=== PATIENT | male | born 1970 | race Caucasian/White ===

== ENCOUNTER 2019-07-02 09:32 | Observation (INO) | payer SELFPAY ==
[~2019-07-02] VITALS: Ht 175.3 cm; Wt 85.4 kg
--- NOTE | 2019-07-02 09:55 | ED Chest Pain ---
General Chief Complaint: Chest Pain Stated Complaint: MEMORY LOSS;CHEST PAIN Source: patient History of Present Illness Date Seen by Provider: Jul 02, 2019 Time Seen by Provider: 09:52 Initial Comments This 48-year-old male presents with chest pain began this morning at 8 o'clock. The chest pain was described as pressure type in nature. It was located over the anterior chest. There was associated diaphoresis. There was no nausea or vomiting. Patient denies similar episode in the past. Past medical history includes untreated hypertension. There is a significant family history for diabetes, hypertension, heart disease. Patient is a smoker. The patient drinks alcohol. Patient denies recreational drugs. The patient according to his had demonstrated slurred speech at the time of his chest pain which was self-limited in nature. The patient denied other lateralizing or localizing neurologic complaints. Allergies and Home Medications Allergies Coded Allergies: No Known Drug Allergies (Unverified , 07/02/19) Home Medications No Active Prescriptions or Reported Meds Patient Home Medication List Home Medication List Reviewed: Yes Review of Systems Review of Systems Constitutional: No chills, No fever EENTM: No Blurred Vision Respiratory: Denies Cough, Denies SOA at Rest Cardiovascular: See HPI, Chest Pain, Other (diaphoresis with the) Gastrointestinal: Denies Abdominal Pain, Denies Nausea Genitourinary: Denies Burning, Denies Frequency Musculoskeletal: No back pain Skin: No change in color, No rash Psychiatric/Neurological: No Symptoms Reported Endocrine: No Symptoms Reported Hematologic/Lymphatic: No Symptoms Reported Past Yohkyis-Rzdzak-Rqasde Hx Past Med/Social Hx: Reviewed Nursing Past Med/Soc Hx Physical Exam Vital Signs Vital Signs - First Documented 07/02/19 09:32 Temp 36.0 Pulse 96 Resp 18 B/P (MAP) 162/117 (132) Pulse Ox 98 Capillary Refill : Height, Weight, BMI Height: '" Weight: lbs. oz. kg; BMI Method: General Appearance: No Apparent Distress HEENT: Normal ENT Inspection Neck: Full Range of Motion, Normal Inspection, Supple Respiratory: Lungs Clear Cardiovascular: Regular Rate, Rhythm, No Murmur Gastrointestinal: Normal Bowel Sounds Extremity: Normal Capillary Refill, Normal Inspection Neurologic/Psychiatric: Alert, Oriented x3, No Motor/Sensory Deficits, Normal Mood/Affect Skin: Normal Color, Warm/Dry Progress/Results/Core Measures Results/Orders Lab Results Laboratory Tests Test 07/02/19 09:39 Range/Units White Blood Count 6.9 4.3-11.0 10^3/uL Red Blood Count 4.91 4.35-5.85 10^6/uL Hemoglobin 17.3 13.3-17.7 G/DL Hematocrit 50 40-54 % Mean Corpuscular Volume 101 H 80-99 FL Mean Corpuscular Hemoglobin 35 H 25-34 PG Mean Corpuscular Hemoglobin Concent 35 32-36 G/DL Red Cell Distribution Width 13.8 10.0-14.5 % Platelet Count 219 130-400 10^3/uL Mean Platelet Volume 11.0 H 7.4-10.4 FL Neutrophils (%) (Auto) 50 42-75 % Lymphocytes (%) (Auto) 35 12-44 % Monocytes (%) (Auto) 13 H 0-12 % Eosinophils (%) (Auto) 1 0-10 % Basophils (%) (Auto) 1 0-10 % Neutrophils # (Auto) 3.5 1.8-7.8 X 10^3 Lymphocytes # (Auto) 2.4 1.0-4.0 X 10^3 Monocytes # (Auto) 0.9 0.0-1.0 X 10^3 Eosinophils # (Auto) 0.1 0.0-0.3 10^3/uL Basophils # (Auto) 0.1 0.0-0.1 10^3/uL Prothrombin Time 13.0 12.2-14.7 SEC INR Comment 1.0 0.8-1.4 Activated Partial Thromboplast Time 28 24-35 SEC Sodium Level 145 135-145 MMOL/L Potassium Level 3.3 L 3.6-5.0 MMOL/L Chloride Level 104 98-107 MMOL/L Carbon Dioxide Level 26 21-32 MMOL/L Anion Gap 15 H 5-14 MMOL/L Blood Urea Nitrogen 5 L 7-18 MG/DL Creatinine 0.85 0.60-1.30 MG/DL Estimat Glomerular Filtration Rate > 60 BUN/Creatinine Ratio 6 Glucose Level 93 70-105 MG/DL Calcium Level 9.1 8.5-10.1 MG/DL Corrected Calcium 8.7 8.5-10.1 MG/DL Magnesium Level 1.9 1.6-2.4 MG/DL Total Bilirubin 0.7 0.1-1.0 MG/DL Aspartate Amino Transf (AST/SGOT) 204 H 5-34 U/L Alanine Aminotransferase (ALT/SGPT) 167 H 0-55 U/L Alkaline Phosphatase 100 40-136 U/L Myoglobin 54.3 10.0-92.0 NG/ML Troponin I < 0.028 <0.028 NG/ML Total Protein 7.4 6.4-8.2 GM/DL Albumin 4.5 3.2-4.5 GM/DL My Orders Orders - ALEXY, JAIDA Velasquez MD Cbc With Automated Diff (07/02/19:43) Magnesium (07/02/19:43) Chest 1 View, Ap/Pa Only (07/02/1943) Ekg Tracing (07/02/19) Cardiac Profile 1 (07/02/19) Comprehensive Metabolic Panel (07/02/1943) Myoglobin Serum (07/02/19:43) Protime With Inr (07/02/1943) Partial Thromboplastin Time (07/02/1943) O2 (07/02/19:43) Monitor-Rhythm Ecg Trace Only (07/02/19:43) Lipid Panel (07/03/19 06:00) Ed Iv/Invasive Line Start (07/02/19:43) Hemoglobin A1c (07/02/19 09:51) Ct Head Wo (07/02/19 09:56) Aspirin Chewable Tablet (Baby Aspirin Ch (07/02/19 11:30) Nitroglycerin Ointment (Nitrobid Ointme (07/02/19 11:30) Vital Signs/I&O 07/02/19 09:32 Temp 36.0 Pulse 96 Resp 18 B/P (MAP) 162/117 (132) Pulse Ox 98 Progress Progress Note : Time: 11:33 Progress Note The patient's EKG demonstrated a sinus rhythm with a rate of 96. No acute current of injury was noted. The patient's troponin was normal. CT of the head was unremarkable. Discussed presentation with Dr. Couch. The patient was given 4 baby aspirin. We are planning on taking the patient to the [facility] given his multitude of risk factors and concerning presentation. Departure Communication (Admissions) Time/Spoke to Admitting Phy: 11:36 Called but have not spoken to Dr. Darnell Time/Spoke to Consulting Phy: 11:36 Dr. Couch. Impression Primary Impression: Chest pain Qualified Codes: I20.0 - Unstable angina Disposition: ADMITTED INPATIENT Condition: Unchanged Admissions Decision to Admit Reason: Admit from ER (General) Decision to Admit/Date: Jul 02, 2019 Time/Decision to Admit Time: 11:36 Departure-Patient Inst. Scripts No Active Prescriptions or Reported Meds JAIDA TRACEY MD Jul 02, 2019 09:55
[2019-07-02 10:03] LABS: BASOPHILS # (AUTO) 0.1 10^3/uL (0.0-0.1); BASOPHILS % (AUTO) 1 % (0-10); EOSINOPHILS # (AUTO) 0.1 10^3/uL (0.0-0.3); EOSINOPHILS % (AUTO) 1 % (0-10); HEMATOCRIT 50 % (40-54); HEMOGLOBIN 17.3 G/DL (13.3-17.7); LYMPHOCYTES # (AUTO) 2.4 X 10^3 (1.0-4.0); LYMPHOCYTES % (AUTO) 35 % (12-44); MEAN CORPUSCULAR HEMOGLOBIN 35 PG (25-34); MEAN CORPUSCULAR HGB CONC 35 G/DL (32-36); MEAN CORPUSCULAR VOLUME 101 FL (80-99); MONOCYTES # (AUTO) 0.9 X 10^3 (0.0-1.0); MONOCYTES % (AUTO) 13 % (0-12); NEUTROPHILS # (AUTO) 3.5 X 10^3 (1.8-7.8); NEUTROPHILS % (AUTO) 50 % (42-75); PLATELET COUNT 219 10^3/uL (130-400); RED CELL DISTRIBUTION WIDTH 13.8 % (10.0-14.5); WHITE BLOOD COUNT 6.9 10^3/uL (4.3-11.0)
[2019-07-02 10:16] LABS: ALANINE AMINOTRANSFERASE 167 U/L (0-55); ALBUMIN 4.5 GM/DL (3.2-4.5); ALKALINE PHOSPHATASE 100 U/L (40-136); BILIRUBIN,TOTAL 0.7 MG/DL (0.1-1.0); BUN/CREATININE RATIO 6; CALCIUM 9.1 MG/DL (8.5-10.1); CARBON DIOXIDE 26 MMOL/L (21-32); CHLORIDE 104 MMOL/L (98-107); CREATININE SERUM 0.85 MG/DL (0.60-1.30); GFR ESTIMATED > 60; GLUCOSE 93 MG/DL (70-105); MAGNESIUM 1.9 MG/DL (1.6-2.4); POTASSIUM 3.3 MMOL/L (3.6-5.0); SODIUM 145 MMOL/L (135-145); TOTAL PROTEIN 7.4 GM/DL (6.4-8.2)
--- NOTE | 2019-07-02 10:21 | Diagnostic Imaging Report ---
INDICATION: Slurred speech. Altered mental status TECHNIQUE: Routine non contrast-enhanced axial images were obtained from the skull base to the vertex. Auto Exposure Controls were utilized during the CT exam to meet ALARA standards for radiation dose reduction COMPARISON: None. FINDINGS: The ventricles and cortical sulci are normal in size and contour. There is no midline shift or mass-effect. No acute intra-axial hemorrhage is seen. There are no abnormal areas of increased or decreased density to suggest acute hemorrhage or edema. No extra-axial masses or collections are present. The bony calvarium is intact. The visualized paranasal sinuses are unremarkable. The mastoid air cells are clear. IMPRESSION: 1. No acute intracranial abnormality. No CT evidence of mass, acute infarct or intracranial hemorrhage. Dictated by: Dictated on workstation # [id number]
--- NOTE | 2019-07-02 10:44 | Diagnostic Imaging Report ---
CHEST 1 VIEW, AP/PA ONLY Indication: Chest pain. Comparison: None available. Findings: No focal airspace disease in the visualized lungs. Please note that the posterior lower lobes are poorly evaluated by portable radiography. No pleural effusion or pneumothorax. Normal cardiomediastinal silhouette. Impression: 1. No acute cardiopulmonary process by portable radiography. Dictated by: Dictated on workstation # [id number]
[2019-07-02] MEDS ORDERED: ASPIRIN 81 MG CHEW (CHILDREN'S ASA) PO ONE (11:30)
[2019-07-02] MEDS ORDERED: NITROGLYCERIN 2% OINT 1 GM UNIT DOSE PACKET TOP ONE (11:30)
--- NOTE | 2019-07-02 11:44 | NUR ---
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 PLAN TO ADMIT AND DR FERRARI WILL CONSULT.
--- NOTE | 2019-07-02 12:03 | Consultation-Cardiology ---
HPI-Cardiology Cardiology Consultation: Date of Consultation 07/02/19 Time Seen by a Provider: 11:40 Date of Admission Attending Physician Deleted Admitting Physician No,Local Physician Consulting Physician JOAN FERRARI MD, MA, FACP, FACC, FSCAI, CCDS HPI: Chief Complaint: CC: Chest discomfort HPI 48 yo man being admitted through the ER after he presents for eval of chest discomfort: onset six months a go, a few times a week (unable to specify more than that), feeling of pressure, associated with a feeling of shortness of breath, non-exertional , w/o aggravating or relieving factors, w/o radiation, mild to mod in intensity. Chronic, mild exertional shortness of breath. No palp or syncope or ankle swelling Review of Systems-Cardiology Review of Systems Constitutional: No malaise, No tiredness, No weight gain Eyes: No vision change Ears/Nose/Throat: No ear discharge, No nasal drainage, No recent hearing loss Respiratory: As described under HPI Cardiovascular: As described under HPI Gastrointestinal: No diarrhea, No nausea, No vomiting Genitourinary: No dysuria, No hematuria, No urine frequency changes Musculoskeletal: No back pain, No joint pain Skin: No rash, No ulcerations Psychiatric/Neurological: No seizure, No focal weakness, No syncope Hematologic: No bleeding abnormalities LPL-Ebiebo-Kjtaya Hx Patient Social History Alcohol Use: Regular Use Recreational Drug Use: No Smoking Status: Current Everyday Smoker Type Used: Cigarettes Recent Foreign Travel: No Recent Infectious Disease Expo: No Hospitalization with Isolation: Denies Past Medical History PMH As described under Assessment. Family Medical History Family Medical History: Father had heart attacks in his 50s/60s (pt not aware of details) Allergies and Home Medications Allergies Coded Allergies: No Known Drug Allergies (Unverified , 07/02/19) Home Medications No Active Prescriptions or Reported Meds Patient Home Medication List Home Medication List Reviewed: Yes Physical Exam-Cardiology Physical Exam Vital Signs/I&O 07/02/19 09:32 Temp 36.0 Pulse 96 Resp 18 B/P (MAP) 162/117 (132) Pulse Ox 98 Capillary Refill : Less Than 3 Seconds Constitutional: AAO x 3, well-developed, well-nourished HEENT: EOMI, hearing is well preserved; No xanthelasmas are seen Neck: carotid pulses are 2 + bilaterally, with good upstrokes Respiratory: No accessory muscle use; lungs clear to percussion, lungs clear to auscultation Cardiovascular: regular rate-rhythm, S1 and S2, systolic murmur (faint KARLA at card base) Gastrointestinal: No tender; soft; No guarding, No rebound; audible bowel sounds Extremities: No clubbing, No cyanosis, No significant edema Neurologic/Psychiatric: grossly intact, power is 5/5 both on sides Skin: No rash on exposed areas, No ulcerations on exposed areas Data Review Labs Laboratory Tests 07/02/19 09:39: White Blood Count 6.9, Red Blood Count 4.91, Hemoglobin 17.3, Hematocrit 50, Mean Corpuscular Volume 101H, Mean Corpuscular Hemoglobin 35H, Mean Corpuscular Hemoglobin Concent 35, Red Cell Distribution Width 13.8, Platelet Count 219, Mean Platelet Volume 11.0H, Neutrophils (%) (Auto) 50, Lymphocytes (%) (Auto) 35, Monocytes (%) (Auto) 13H, Eosinophils (%) (Auto) 1, Basophils (%) (Auto) 1, Neutrophils # (Auto) 3.5, Lymphocytes # (Auto) 2.4, Monocytes # (Auto) 0.9, Eosinophils # (Auto) 0.1, Basophils # (Auto) 0.1, Prothrombin Time 13.0, INR Comment 1.0, Activated Partial Thromboplast Time 28, Sodium Level 145, Potassium Level 3.3L, Chloride Level 104, Carbon Dioxide Level 26, Anion Gap 15H, Blood Urea Nitrogen 5L, Creatinine 0.85, Estimat Glomerular Filtration Rate > 60, BUN/Creatinine Ratio 6, Glucose Level 93, Calcium Level 9.1, Corrected Calcium 8.7, Magnesium Level 1.9, Total Bilirubin 0.7, Aspartate Amino Transf (AST/SGOT) 204H, Alanine Aminotransferase (ALT/SGPT) 167H, Alkaline Phosphatase 100, Myoglobin 54.3, Troponin I < 0.028, Total Protein 7.4, Albumin 4.5 A/P-Cardiology Assessment/Admission Diagnosis Chest pain of undetermined etiology Hypertension Chronic tobacco use Fam h/o early CAD Discussion and Recomendations * Given multiple risk factors and his symptoms, we recommend further cardiac w/u. We discussed options. He refuses invasive options for the time being. Says will consider it if evidence of SC or ischemia. If enzymes negative, will plan on MPI. Also echo to eval for structural heart disease * Treat with ASA and bb * Advised to quit smoking immediately and completely Clinical Quality Measures AMI/AHF: ASA po Prior to arrival: JOAN Mondragon MD FACP FAC CCDS Jul 02, 2019 12:03
[2019-07-02] MEDS ORDERED: meTOprolol SUCCINATE 100 MG (TOPROL XL) TAB PO ONE (12:15)
[2019-07-02 12:50] VITALS: BP 160/96
[2019-07-02] MEDS ORDERED: CATHETER FLUSH 10 ML SYR IV PRN (13:30)
[2019-07-02] MEDS ORDERED: morphine INJ 4 MG/ML 1 ML (VIAL/SYRINGE) IV PRN (13:30)
[2019-07-02] MEDS ORDERED: NITROGLYCERIN 0.4 MG SL TABS BTL 25'S SL PRN (13:30)
[2019-07-02] MEDS ORDERED: KCL 20 MEQ TAB (K-DUR) PO NR ×2 (13:45→18:00)
--- NOTE | 2019-07-02 15:00 | NUR ---
PT WANTING TO GO OUT AND SMOKE. DR GOVEA IS AWARE. NO NICOTINE PATCH FOR THE PATIENT AT THIS TIME PER DR. GOVEA. IF PT DECIDES HE HAS TO GO SMOKE AGAINST MEDICAL ADVISE, HE WILL SIGN OUR NICOTINE FORM.
[2019-07-02] MEDS: NS IV 1000 ML 1,000 ML IV SCH (15:05)
--- NOTE | 2019-07-02 15:22 | History & Physical-Hospitalist ---
History of Present Illness HPI/Chief Complaint Pt is a 48yoCM with a PMH of alcohol dependence who presented to the ER due to confusion and chest pain. He states his brought him in because he was clammy, diaphoretic, and slurry his speech. He states that over the past few weeks he has been trying to wean off drink slowly which has made his confusion worse. He states he had chest pain that did not radiate but felt like someone standing on his chest. He denies any SOB. He does not see a doctor regularly and has no known medical problems but thinks he probably has high blood pressure. He does smoke 1ppd. Source: patient, family Date Seen 07/02/19 Time Seen by a Provider: 15:00 Attending Physician Basilio Darnell MD PCP No,Local Physician Referring Physician Date of Admission Jul 02, 2019 at 12:28 Home Medications & Allergies Home Medications Reviewed patient Home Medication Reconciliation performed by pharmacy medication reconciliations veterinary surgery technician and/or nursing. Patients Allergies have been reviewed. Allergies Allergies Coded Allergies No Known Drug Allergies (Hffkfafwwt31/22/19) Past Gytsyri-Ltuuzp-Qxbsik Hx Past Med/Social Hx: Reviewed Nursing Past Med/Soc Hx Patient Social History Marrital Status: Alcohol Use: Regular Use (pint/day) Alcohol Beverage of Choice: Vodka Recreational Drug Use: No Smoking Status: Current Everyday Smoker Cigaretts per day: 20 Type Used: Cigarettes Recent Foreign Travel: No Contact w/other who traveled: No Recent Infectious Disease Expo: No Past Medical History Cardiac: Hypertension Family History Reviewed Nursing Family Hx Diabetes mellitus 19 FATHER 19 MOTHER G8 BROTHER Polio 19 FATHER Review of Systems Constitutional: diaphoresis; No fever EENTM: no symptoms reported Respiratory: No dyspnea on exertion, No short of breath Cardiovascular: chest pain; No edema, No Hx of Intervention Gastrointestinal: No abdominal pain, No loss of appetite, No nausea, No vomiting Genitourinary: no symptoms reported Musculoskeletal: no symptoms reported Skin: no symptoms reported Psychiatric/Neurological: See HPI Physical Exam Physical Exam Vital Signs Vital Signs - First Documented 07/02/19 07/02/19 07/02/19 09:32 12:40 20:00 Temp 36.0 Pulse 96 Resp 18 B/P (MAP) 162/117 (132) Pulse Ox 98 O2 Delivery Room Air FiO2 98 Capillary Refill : Less Than 3 Seconds Height, Weight, BMI Height: '" Weight: lbs. oz. kg; 27.85 BMI Method: General Appearance: No Apparent Distress, WD/WN Eyes: Right Eye Normal Inspection, Right Eye PERRL HEENT: PERRL/EOMI, Moist Mucous Membranes; No Scleral Icterus (L), No Scleral Icterus (R) Neck: Full Range of Motion, Normal Inspection, Non Tender Respiratory: Lungs Clear, Normal Breath Sounds, No Accessory Muscle Use, No Respiratory Distress Cardiovascular: Regular Rate, Rhythm, No Edema, No JVD, No Murmur, Normal Peripheral Pulses Gastrointestinal: Normal Bowel Sounds, Non Tender, Soft Back: No Vertebral Tenderness Extremity: Normal Inspection, No Calf Tenderness, No Pedal Edema Neurologic/Psychiatric: Alert, Oriented x3, Normal Mood/Affect; No Aphasia, No Facial Droop Skin: Normal Color, Warm/Dry Results Results/Procedures Labs Laboratory Tests 07/02/19 09:39 07/03/19 03:20 Patient resulted labs reviewed. Imaging: Reviewed Imaging Report Assessment/Plan Admission Diagnosis Chest Pain Admission Status: Observation Assessment and Plan Chest Pain HTN Cardiology consulted, appreciate recs Was to have a cath but he declined Stress test for tomorrow troponin negative, will trend Telemetryr Alcohol Abuse transaminitis Confusion likely due to withdrawal CIWA protocol Head CT negative Hypokalemia Replace per protocol Clinical Quality Measures AMI/AHF: ASA po Prior to arrival: No DVT/VTE Risk/Contraindication: Risk Factor Score Per Nursin RFS Level Per Nursing on Admit: 1=Low/No VTE PPX BASILIO DARNELL MD Jul 02, 2019 15:22
[2019-07-02] MEDS ORDERED: 1/2 NS IV SOLUTION 1,000 ML IV PRN (15:26)
[2019-07-02] MEDS ORDERED: ANTACID SUSP 30 ML UDC (MYLANTA) PO PRN (15:30)
[2019-07-02] MEDS ORDERED: LORazepam INJ 2 MG/ML (ATIVAN) VIAL IM/IV PRN (15:30)
[2019-07-02] MEDS ORDERED: LORazepam 1 MG (ATIVAN) TAB PO PRN (15:30)
[2019-07-02] MEDS ORDERED: LORazepam INJ 2 MG/ML (ATIVAN) VIAL IV PRN (15:30)
[2019-07-02] MEDS ORDERED: ONDANSETRON 4 MG/2 ML (SDV) Z0FRAN IV PRN (15:30)
[2019-07-02] MEDS ORDERED: D5 1/2 NS 1000 ML IV SOLUTION 1,000 ML IV PRN (15:30)
[2019-07-02] MEDS ORDERED: SENNA W/DOCUSATE (SENOKOT S) TABLET PO PRN (15:30)
[2019-07-02] MEDS ORDERED: ONDANSETRON 4 MG (ZOFRAN) ORAL DISSOLVE TAB SL PRN (15:30)
[2019-07-02 15:34] LABS: CREATINE KINASE 117 U/L (30-200)
--- NOTE | 2019-07-02 15:35 | NUR ---
TIMELINE NOTE: 1535: PT WANTED TO GO WALK WITH FAMILY AND SMOKE. ATTEMPTS TO FIND FORM ONGOING. HE WILL SIGN THE FORM ABOUT SMOKING AGAINST MEDICAL ADVISE. HE WILL NOT WAIT FOR THIS FORM TO GO SMOKE. PT STATES HE UNDERSTANDS THE RISKS ASSOCIATED WITH SMOKING AND STILL WISHES TO GO. TELE GOES OUT OF RANGE AT 1540. 1559: PT ARRIVES BACK ON THE UNIT WITH MULTIPLE FAMILY MEMBERS.
[2019-07-02 16:24] VITALS: BP 126/84
[2019-07-02] MEDS: THIAMINE INJECTION 100 MG, FOLIC ACID INJECTION 1 MG, MAGNESIUM SULFATE 2 GM, VITAMIN M... IV SCH ×5 (16:49)
[2019-07-02 20:00] VITALS: BP 150/90
--- NOTE | 2019-07-02 20:30 | NUR ---
CALLED DR. HODGES AND INFORMED HIM THAT PATIENT IS COMPLAINING OF HEADACHE. RECEIVED ORDER FOR TYLENOL. SEE EMAR FOR DETAILS.
[2019-07-02] MEDS ORDERED: ACETAMINOPHEN 325 MG TABLET PO PRN (20:45)
[2019-07-03 00:55] VITALS: BP 147/83
[2019-07-03 03:38] LABS: BASOPHILS % (AUTO) 1 % (0-10); EOSINOPHILS # (AUTO) 0.1 10^3/uL (0.0-0.3); EOSINOPHILS % (AUTO) 1 % (0-10); HEMATOCRIT 39 % (40-54); LYMPHOCYTES # (AUTO) 1.6 X 10^3 (1.0-4.0); LYMPHOCYTES % (AUTO) 25 % (12-44); MEAN CORPUSCULAR HEMOGLOBIN 37 PG (25-34); MEAN CORPUSCULAR HGB CONC 36 G/DL (32-36); MEAN CORPUSCULAR VOLUME 101 FL (80-99); MEAN PLATELET VOLUME 11.2 FL (7.4-10.4); MONOCYTES # (AUTO) 0.7 X 10^3 (0.0-1.0); MONOCYTES % (AUTO) 12 % (0-12); NEUTROPHILS # (AUTO) 3.8 X 10^3 (1.8-7.8); NEUTROPHILS % (AUTO) 61 % (42-75); PLATELET COUNT 161 10^3/uL (130-400); RED CELL DISTRIBUTION WIDTH 13.5 % (10.0-14.5); WHITE BLOOD COUNT 6.3 10^3/uL (4.3-11.0)
[2019-07-03 03:57] LABS: ALANINE AMINOTRANSFERASE 125 U/L (0-55); ALBUMIN 3.7 GM/DL (3.2-4.5); ALKALINE PHOSPHATASE 87 U/L (40-136); BILIRUBIN,TOTAL 1.1 MG/DL (0.1-1.0); BUN/CREATININE RATIO 9; CALCIUM 8.3 MG/DL (8.5-10.1); CARBON DIOXIDE 24 MMOL/L (21-32); CHLORIDE 109 MMOL/L (98-107); CHOLESTEROL 180 MG/DL (< 200); CREATININE SERUM 0.79 MG/DL (0.60-1.30); GFR ESTIMATED > 60; GLUCOSE 90 MG/DL (70-105); HDL CHOLESTEROL 46 MG/DL (40-60); MAGNESIUM 1.8 MG/DL (1.6-2.4); SODIUM 143 MMOL/L (135-145); TOTAL PROTEIN 5.8 GM/DL (6.4-8.2); TRIGLYCERIDES 62 MG/DL (<150); VLDL CHOLESTEROL 12 MG/DL (5-40)
[2019-07-03 04:00] VITALS: BP 157/93
[2019-07-03] MEDS ORDERED: CATHETER FLUSH 10 ML SYR IV PRN (07:00)
--- NOTE | 2019-07-03 07:10 | NUR ---
Pt off unit for stress test
[2019-07-03] MEDS ORDERED: REGADENOSON 0.4 MG/5 ML SYR (LEXISCAN) IV ONE ×2 (07:56→08:15)
[2019-07-03 08:00] VITALS: BP 167/112
[2019-07-03 08:04] LABS: BILIRUBIN,URINE NEGATIVE (NEGATIVE); CLARITY,URINE CLEAR; COLOR,URINE YELLOW; GLUCOSE, URINE (UA) NEGATIVE (NEGATIVE); KETONES,URINE NEGATIVE (NEGATIVE); LEUKOCYTE ESTERASE ,URINE 1+ (NEGATIVE); NITRITE,URINE NEGATIVE (NEGATIVE); PH,URINE 6.5 (5-9); PROTEIN,URINE NEGATIVE (NEGATIVE)
--- NOTE | 2019-07-03 08:20 | Progress Note - Cardiology ---
Cardiology SOAP Progress Note Subjective: No c/o CP, palpitations, syncope, near syncope or dyspnea. C/O nausea and clamminess overnight. Objective: I&O/Vital Signs 07/03/19 07/03/19 07/03/19 07/03/19 04:00 04:00 07:00 08:00 Temp 37.2 37.0 Pulse 78 86 103 Resp 20 20 B/P (MAP) 157/93 (114) 167/112 (130) Pulse Ox 97 97 O2 Delivery Room Air Room Air Room Air FiO2 97 07/03/19 07/03/19 07/03/19 07/03/19 08:00 09:00 12:00 12:00 Temp 36.8 Pulse 74 Resp 19 B/P (MAP) 165/101 (122) Pulse Ox 97 98 O2 Delivery Room Air Room Air Room Air Room Air FiO2 97 97 07/03/19 00:00 Intake Total 620 ml Output Total 0 ml Balance 620 ml Constitutional: AAO x 3, well-developed, well-nourished Respiratory: No accessory muscle use; lungs clear to percussion, lungs clear to auscultation Cardiovascular: regular rate-rhythm, S1 and S2, systolic murmur (faint KARLA at card base) Gastrointestional: No tender; soft; No guarding, No rebound; audible bowel sounds Extremities: No clubbing, No cyanosis, No significant edema Neurologic/Psychiatric: grossly intact, power is 5/5 both on sides Skin: No rash on exposed areas, No ulcerations on exposed areas Results/Procedures: Labs Laboratory Tests 07/02/19 15:05: Total Creatine Kinase 117, Myoglobin 51.6, Troponin I < 0.028, Serum Alcohol 218H 07/03/19 03:20: White Blood Count 6.3, Red Blood Count 3.82L, Hemoglobin 14.0, Hematocrit 39L, Mean Corpuscular Volume 101H, Mean Corpuscular Hemoglobin 37H, Mean Corpuscular Hemoglobin Concent 36, Red Cell Distribution Width 13.5, Platelet Count 161, Mean Platelet Volume 11.2H, Neutrophils (%) (Auto) 61, Lymphocytes (%) (Auto) 25, Monocytes (%) (Auto) 12, Eosinophils (%) (Auto) 1, Basophils (%) (Auto) 1, Neutrophils # (Auto) 3.8, Lymphocytes # (Auto) 1.6, Monocytes # (Auto) 0.7, Eosinophils # (Auto) 0.1, Basophils # (Auto) 0.0, Sodium Level 143, Potassium Level 4.0, Chloride Level 109H, Carbon Dioxide Level 24, Anion Gap 10, Blood Urea Nitrogen 7, Creatinine 0.79, Estimat Glomerular Filtration Rate > 60, BUN/Creatinine Ratio 9, Glucose Level 90, Calcium Level 8.3L, Corrected Calcium 8.5, Magnesium Level 1.8, Total Bilirubin 1.1H, Aspartate Amino Transf (AST/SG OT) 132H, Alanine Aminotransferase (ALT/SGPT) 125H, Alkaline Phosphatase 87, Total Protein 5.8L, Albumin 3.7, Triglycerides Level 62, Cholesterol Level 180, LDL Cholesterol Direct 127, VLDL Cholesterol 12, HDL Cholesterol 46, Thyroid Stimulating Hormone (TSH) 1.56 07/03/19 07:00: Urine Color YELLOW, Urine Clarity CLEAR, Urine pH 6.5, Urine Specific Media 1.020, Urine Protein NEGATIVE, Urine Glucose (UA) NEGATIVE, Urine Ketones NEGAT DEMARIO, Urine Nitrite NEGATIVE, Urine Bilirubin NEGATIVE, Urine Urobilinogen 8H, Urine Leukocyte Esterase 1+H, Urine RBC (Auto) NEGATIVE, Urine RBC NONE, Urine WBC 2-5, Urine Squamous Epithelial Cells 2-5, Urine Crystals NONE, Urine Bacteria TRACE, Urine Casts NONE, Urine Mucus SMALLH, Urine Culture Indicated YES A/P: Assessment: Chest pain of undetermined etiology - no evidence of ACS MPI of 07/03/19: no ischemia or infarction, mild global hypokinesis, LVEF 47% Echo of 07/03/19: LVEF 50-55% 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 Elevated transaminases, probably alcohol-related Hypertension Chronic tobacco use Fam h/o early CAD ETOH use - elevated serum alcohol at time of admission Elevated liver enzymes of undetermined etiology - medical services managing Plan: * MPI - pending * HTN - not well controlled, adjust antihypertensive regimen as indicated * Elevated liver enzymes of undetermined etiology - medical services managing - improved from admission * Advised to quit smoking immediately and completely Physician Assessment Physician Assessment No shortness of breath No cp or palp or syncope Lungs: fair to good bilat air entry Cor: reg Ext: no c/c/e A&R * As documented in our note above that I updated (italics) and as noted below * I had a long and detailed discussion with him regarding his cardiac w/u * We have advised immediate and complete smoking and alcohol cessation * We have advised consideration of sleep studies * We have advised f/u on liver issues with his pcp * Cardiac f/u is also advised * I also discussed his case with Dr Darnell of the Hospitalist Service Clinical Quality Measures AMI/AHF: ASA po Prior to arrival: BRO Linn [facility] Jul 03, 2019 08:20 JOAN FERRARI MD FACP [facility] Jul 03, 2019 13:32
[2019-07-03 08:38] LABS: BACTERIA,URINE TRACE /HPF
[2019-07-03] MEDS ORDERED: meTOprolol SUCCINATE 100 MG (TOPROL XL) TAB PO SCH (09:00)
[2019-07-03] MEDS: THIAMINE INJECTION 100 MG, FOLIC ACID INJECTION 1 MG, MAGNESIUM SULFATE 2 GM, VITAMIN M... IV SCH ×5 (09:57)
[2019-07-03] MEDS: ASPIRIN 81 MG CHEW (CHILDREN'S ASA) PO SCH ×3 (09:57→12:31)
[2019-07-03] MEDS: NS IV 1000 ML 1,000 ML IV SCH (09:58)
--- NOTE | 2019-07-03 11:31 | NUR ---
Initial visit with the pt and his . Both are Yazidi and shared that they have been praying through the stress and concern of pt's recent health concerns. They said neither of them have suffered serious health concerns before. I offered active listening, normalized stressors, and provided supportive presence. Both expressed appreciation for space to share.
[2019-07-03 12:00] VITALS: BP 165/101
[2019-07-03] MEDS ORDERED: ASPI-999 PO (13:20)
[2019-07-03] MEDS ORDERED: METO-395 PO (13:20)
--- NOTE | 2019-07-03 13:22 | Discharge Inst-Simple/Standard ---
Discharge Inst-Standard Reconcile Patient Problems Problems Reviewed?: Yes Discharge Medications New, Converted or Re-Newed RX: Transmitted to Pharmacy Patient Instructions/Follow Up Plan of Care/Instructions/FU: Please continue to take your medications as written. Activity as Tolerated: Yes Discharge Diet: Low Sodium Diet Return to The Hospital For: Chest pain, shortness of breath, if you feel you are getting worse. BASILIO GOVEA MD Jul 03, 2019 13:22
--- NOTE | 2019-07-03 13:30 | Discharge Summary ---
Diagnosis/Chief Complaint Date of Admission Jul 02, 2019 at 12:28 Date of Discharge Discharge Date: Jul 03, 2019 Admission Diagnosis Chest Pain Primary Care Discharge Diagnosis (1) Chest pain Status: Acute (2) Sleep apnea (3) Hypertension Discharge Summary Procedures/Consulations Dr Couch- Cardiology Discharge Physical Exam Allergies: Coded Allergies: No Known Drug Allergies (Unverified , 07/02/19) Vitals & I&Os Vital Signs Date Time Temp Pulse Resp B/P (MAP) Pulse Ox O2 Delivery O2 Flow Rate FiO2 07/03/19 12:00 Room Air 97 07/03/19 12:00 36.8 74 19 165/101 (122) 98 General Appearance: No Apparent Distress, WD/WN Respiratory: Lungs Clear, No Respiratory Distress Cardiovascular: Regular Rate, Rhythm, No Murmur Neurologic/Psychiatric: Alert, Oriented x3 Hospital Course Pt is a 48yoCM with no known medical history who presented to the ER due to confusion and chest pain. He was found to have an alcohol level of 218 likely contributing to the confusion. He underwent stress testing as well which was negative. He was discharged home in stable condition to follow up with [facility] for primary care. He was referred to Dr Barnes for concerns regarding sleep apnea and is to follow up with Dr Couch. He does have a significant alcohol history and was advised on the harms to his health already given his transaminitis and decreased EF on echo. He was also advised strongly to quite smoking as well. Labs (last 24 hrs) Laboratory Tests 07/02/19 15:05: Total Creatine Kinase 117, Myoglobin 51.6, Troponin I < 0.028, Serum Alcohol 218H 07/03/19 03:20: White Blood Count 6.3, Red Blood Count 3.82L, Hemoglobin 14.0, Hematocrit 39L, Mean Corpuscular Volume 101H, Mean Corpuscular Hemoglobin 37H, Mean Corpuscular Hemoglobin Concent 36, Red Cell Distribution Width 13.5, Platelet Count 161, Mean Platelet Volume 11.2H, Neutrophils (%) (Auto) 61, Lymphocytes (%) (Auto) 2 5, Monocytes (%) (Auto) 12, Eosinophils (%) (Auto) 1, Basophils (%) (Auto) 1, Neutrophils # (Auto) 3.8, Lymphocytes # (Auto) 1.6, Monocytes # (Auto) 0.7, Eosinophils # (Auto) 0.1, Basophils # (Auto) 0.0, Sodium Level 143, Potassium Level 4.0, Chloride Level 109H, Carbon Dioxide Level 24, Anion Gap 10, Blood Urea Nitrogen 7, Creatinine 0.79, Estimat Glomerular Filtration Rate > 60, BUN/Creatinine Ratio 9, Glucose Level 90, Calcium Level 8.3L, Corrected Calcium 8.5, Magnesium Level 1.8, Total Bilirubin 1.1H, Aspartate Amino Transf (AST/SGOT) 132H, Alanine Aminotransferase (ALT/SGPT) 125H, Alkaline Phosphatase 87, Total Protein 5.8L, Albumin 3.7, Triglycerides Level 62, Cholesterol Level 180, LDL Cholesterol Direct 127, VLDL Cholesterol 12, HDL Cholesterol 46, Th yroid Stimulating Hormone (TSH) 1.56 07/03/19 07:00: Urine Color YELLOW, Urine Clarity CLEAR, Urine pH 6.5, Urine Specific [place] 1.020, Urine Protein NEGATIVE, Urine Glucose (UA) NEGATIVE, Urine Ketones NEGATIVE, Urine Nitrite NEGATIVE, Urine Bilirubin NEGATIVE, Urine Urobilinogen 8H, Urine Leukocyte Esterase 1+H, Urine RBC (Auto) NEGATIVE, Urine RBC NONE, Urine WBC 2-5, Urine Squamous Epithelial Cells 2-5, Urine Crystals NONE, Urine Bacteria TRACE, Urine Casts NONE, Urine Mucus SMALLH, Urine Culture Indicated YES Patient resulted labs reviewed. Pending Labs Laboratory Tests 07/03/19 07:00: Urine Color YELLOW, Urine Clarity CLEAR, Urine pH 6.5, Urine Specific [place] 1.020, Urine Protein NEGATIVE, Urine Glucose (UA) NEGATIVE, Urine Ketones NEGA TIVE, Urine Nitrite NEGATIVE, Urine Bilirubin NEGATIVE, Urine Urobilinogen 8, Urine Leukocyte Esterase 1+, Urine RBC (Auto) NEGATIVE, Urine RBC NONE, Urine WBC 2-5, Urine Squamous Epithelial Cells 2-5, Urine Crystals NONE, Urine Bacteria TRACE, Urine Casts NONE, Urine Mucus SMALL, Urine Culture Indicated YES Imaging: Reviewed Imaging Report Discussion & Recommendations Discharge Planning: >30 minutes discharge planning Discharge Home Medications: Active Scripts Active Losartan Potassium 25 Mg Tablet 25 Mg PO DAILY Aspirin 81 Mg Tab.chew 81 Mg PO DAILY Metoprolol Succinate 100 Mg Tab.er.24h 100 Mg PO DAILY Instructions to patient/family Please see electronic discharge instructions given to patient. Clinical Quality Measures AMI/AHF: ASA po Prior to arrival: No DVT/VTE Risk/Contraindication: Risk Factor Score Per Nursin RFS Level Per Nursing on Admit: 1=Low/No VTE PPX Copy Copies To 1: [facility] [place] Problem Qualifiers (1) Chest pain: Chest pain type: chest pain due to myocardial ischemia Ischemic chest pain type: unstable angina pectoris Qualified Codes: I20.0 - Unstable angina (2) Sleep apnea: Sleep apnea type: unspecified type Qualified Codes: G47.30 - Sleep apnea, unspecified (3) Hypertension: Hypertension type: unspecified Qualified Codes: I10 - Essential (primary) hypertension BASILIO GOVEA MD Jul 03, 2019 13:30
[2019-07-03] MEDS ORDERED: LOSA25TA41 PO (13:32)
--- NOTE | 2019-07-03 15:28 | STRESS TEST ---
DATE OF SERVICE: 07/03/2019 RESTING AND POST REGADENOSON TECHNETIUM-99M TETROFOSMIN SPECT CT IMAGING Baseline images were carried out after injection of 10.91 mCi of technetium-99m Tetrofosmin. This was followed by 0.4 mg regadenoson and 32.3 mCi of technetium-99m Tetrofosmin for stress imaging. The electrocardiogram showed sinus rhythm at baseline. It did not change significantly with regadenoson infusion. Review of images at rest and following stress does not indicate any significant perfusion defects consistent with significant myocardial ischemia or infarction. Gated images show mild global hypokinesis. Left ventricular ejection fraction is calculated to be 47%. CONCLUSIONS: 1. This study does not indicate evidence of significant myocardial ischemia or infarction. 2. Mild global hypokinesis with a calculated ejection fraction of 47%. Job ID: [id number] DocumentID: [id number] Dictated Date: 07/03/2019 12:04:01 Contract Engineer Date: 07/03/2019 15:27:30 Dictated By: JOAN FERRARI MD, MA, FACP, FACC,
[2019-07-05] MEDS ORDERED: MULTIVIT W/MINERALS TAB (THERAGRAN M) PO SCH (07:00)
[2019-07-05] MEDS ORDERED: THIAMINE 100 MG (VITAMIN B-1) TAB PO SCH (07:00)
[2019-07-05] MEDS ORDERED: FOLIC ACID 1 MG TAB PO SCH (09:00)
[2019-07-05] MEDS ORDERED: MAGNESIUM OXIDE (MAG-OX)400 MG TAB PO SCH (09:00)
== END 2019-07-03 14:44 | disposition home or self-care (01) ==
LOC: ER 09:34 → CATH 11:39 → CSD 12:28 → INTOOBSV 12:28
PROVIDERS: ADMIT Family Medicine; ATTEND Family Medicine
DX: R07.9 Chest pain, unspecified (principal); G47.30 Sleep apnea, unspecified; I10 Essential (primary) hypertension; E87.6 Hypokalemia; R74.0 Nonspecific elevation of levels of transaminase and lactic acid dehydrogenase [LDH]; F17.210 Nicotine dependence, cigarettes, uncomplicated; Z82.49 Family history of ischemic heart disease and other diseases of the circulatory system; Z83.3 Family history of diabetes mellitus
CPT/HCPCS: 36415; 70450; 71045; 78452; 80053; 80061; 80320; 81000; 82550; 83036; 83735; 83874; 84443; 84484; 85025; 85610; 85730; 87077; 87088; 93005; 93017; 93041; 93306